=== PATIENT | male | born 1985 | race American Indian/Alaskan Native ===

== ENCOUNTER 2018-05-25 09:40 | Emergency (ER) | payer MEDICARE ==
[2018-05-25 10:06] VITALS: BP 127/67
[2018-05-25] MEDS ORDERED: TESSALON PERLES PO ONE (10:52)
--- NOTE | 2018-05-25 10:53 | Emergency Department Report ---
ED General Adult HPI - General Chief complaint: Upper Respiratory Infection Stated complaint: COLD/COUGH/MUCUS Time Seen by Provider: 05/25/18 10:26 Source: patient Mode of arrival: Ambulatory Limitations: No Limitations - History of Present Illness Initial comments: Patient presents to emergency Department with a chief complaint of a cough and congestion 4 days. Patient states the cough is productive in nature and endorses multiple sick contacts. Patient denies fever. Patient also denies chest pain, headache, abdominal pain. Patient states that he thinks he has bronchitis -: Gradual Severity scale (0 -10): 0 Quality: aching Consistency: constant Improves with: none Worsens with: none Associated Symptoms: denies other symptoms Treatments Prior to Arrival: none - Related Data Home Medications Medication Instructions Recorded Confirmed Last Taken Disulfiram [Antabuse] 06/25/14 06/25/14 Unknown Sertraline [Zoloft] 100 mg PO QDAY 06/25/14 06/25/14 Unknown traZODone [Desyrel] 50 mg PO QHS 06/25/14 06/25/14 Unknown Previous Rx's Medication Instructions Recorded Last Taken Type Amoxicillin [Trimox CAP] 500 mg PO Q8H #30 capsule 11/17/14 Unknown Rx Ibuprofen [Motrin 800 MG tab] 800 mg PO Q8HR PRN #30 tablet 11/17/14 Unknown Rx ALBUTEROL Inhaler (OR & NICU) 2 puff IH Q4HR PRN #1 inhalation 05/25/18 Unknown Rx [ProAir HFA Inhaler] Azithromycin [Zithromax Z-JAH] 250 mg PO DAILY #6 tablet 05/25/18 Unknown Rx Benzonatate [Tessalon Perles] 100 mg PO Q8HR PRN #20 capsule 05/25/18 Unknown Rx predniSONE [Deltasone] 20 mg PO DAILY #15 tablet 05/25/18 Unknown Rx Allergies Allergy/AdvReac Type Severity Reaction Status Date / Time No Known Allergies Allergy Verified 11/17/14 09:30 ED Review of Systems ROS: Stated complaint: COLD/COUGH/MUCUS Other details as noted in HPI Comment: All other systems reviewed and negative Constitutional: denies: chills, fever Eyes: denies: eye pain, eye discharge, vision change ENT: denies: ear pain, throat pain Respiratory: cough. denies: shortness of breath, wheezing Cardiovascular: denies: chest pain, palpitations Endocrine: no symptoms reported Gastrointestinal: denies: abdominal pain, nausea, diarrhea Genitourinary: denies: urgency, dysuria Musculoskeletal: denies: back pain, joint swelling, arthralgia Skin: denies: rash, lesions Neurological: denies: headache, weakness, paresthesias Psychiatric: denies: anxiety, depression Hematological/Lymphatic: denies: easy bleeding, easy bruising ED Past Medical Hx - Past Medical History Previous Medical History?: Yes Hx Diabetes: Yes Hx Psychiatric Treatment: Yes (Daniella peña Apr 2013/ DEPRESSION/ MOOD SWINGS) Additional medical history: Cocaine addiction - Surgical History Past Surgical History?: Yes Additional Surgical History: Right arm surgery - Social History Smoking Status: Current Every Day Smoker Substance Use Type: Alcohol - Medications Home Medications: Home Medications Medication Instructions Recorded Confirmed Last Taken Type Disulfiram [Antabuse] 06/25/14 06/25/14 Unknown History Sertraline [Zoloft] 100 mg PO QDAY 06/25/14 06/25/14 Unknown History traZODone [Desyrel] 50 mg PO QHS 06/25/14 06/25/14 Unknown History Amoxicillin [Trimox CAP] 500 mg PO Q8H #30 capsule 11/17/14 Unknown Rx Ibuprofen [Motrin 800 MG tab] 800 mg PO Q8HR PRN #30 tablet 11/17/14 Unknown Rx ALBUTEROL Inhaler (OR & NICU) 2 puff IH Q4HR PRN #1 inhalation 05/25/18 Unknown Rx [ProAir HFA Inhaler] Azithromycin [Zithromax Z-JAH] 250 mg PO DAILY #6 tablet 05/25/18 Unknown Rx Benzonatate [Tessalon Perles] 100 mg PO Q8HR PRN #20 capsule 05/25/18 Unknown Rx predniSONE [Deltasone] 20 mg PO DAILY #15 tablet 05/25/18 Unknown Rx ED Physical Exam - General Limitations: No Limitations General appearance: alert, in no apparent distress - Head Head exam: Present: atraumatic, normocephalic - Eye Eye exam: Present: normal appearance, PERRL, EOMI - ENT ENT exam: Present: mucous membranes moist - Neck Neck exam: Present: normal inspection - Respiratory Respiratory exam: Present: normal lung sounds bilaterally, wheezes, rales. Absent: respiratory distress - Cardiovascular Cardiovascular Exam: Present: regular rate, normal rhythm. Absent: systolic murmur, diastolic murmur, rubs, gallop - GI/Abdominal GI/Abdominal exam: Present: soft, normal bowel sounds. Absent: distended, tenderness - Rectal Rectal exam: Present: deferred - Extremities Exam Extremities exam: Present: normal inspection - Back Exam Back exam: Present: normal inspection - Neurological Exam Neurological exam: Present: alert, oriented X3, CN II-XII intact. Absent: motor sensory deficit - Psychiatric Psychiatric exam: Present: normal affect, normal mood - Skin Skin exam: Present: warm, dry, intact, normal color. Absent: rash ED Course Vital Signs 05/25/18 10:04 Temperature 98.2 F Pulse Rate 63 Respiratory 20 Rate Blood Pressure 127/67 O2 Sat by Pulse 99 Oximetry ED Medical Decision Making - Radiology Data Radiology results: report reviewed - Medical Decision Making Discussed results with patient Critical care attestation.: If time is entered above; I have spent that time in minutes in the direct care of this critically ill patient, excluding procedure time. ED Disposition Clinical Impression: Acute bronchitis Disposition: TO HOME OR SELFCARE Is pt being admited?: No Does the pt Need Aspirin: No Condition: Stable Instructions: Acute Bronchitis (ED) Additional Instructions: return if worse Prescriptions: ALBUTEROL Inhaler (OR & NICU) [ProAir HFA Inhaler] 2 puff IH Q4HR PRN #1 inhalation PRN Reason: Shortness Of Breath Azithromycin [Zithromax Z-JAH] 250 mg PO DAILY #6 tablet Benzonatate [Tessalon Perles] 100 mg PO Q8HR PRN #20 capsule PRN Reason: Cough predniSONE [Deltasone] 20 mg PO DAILY #15 tablet Referrals: JULIANNA HOSKINS MD [Primary Care Provider] - 3-5 Days [facility] [Provider Group] - 3-5 Days [facility] [Provider Group] - 3-5 Days Time of Disposition: 12:17
--- NOTE | 2018-05-25 12:35 | XRay Report ---
ROUTINE CHEST, TWO VIEWS: HISTORY: Cough. The trachea, heart, mediastinal contour, lung chapman and bony thorax are unremarkable. IMPRESSION: Unremarkable chest x-ray.
== END 2018-05-25 12:29 | disposition home or self-care (01) ==
LOC: ED 09:40
DX: J20.9 Acute bronchitis, unspecified (principal); E11.9 Type 2 diabetes mellitus without complications; F17.200 Nicotine dependence, unspecified, uncomplicated
CPT/HCPCS: 71046

== ENCOUNTER 2018-06-02 09:25 | Emergency (ER) | payer MEDICARE ==
--- NOTE | 2018-06-02 10:13 | Emergency Department Report ---
Minor Respiratory - HPI Chief Complaint: Upper Respiratory Infection Stated Complaint: COUGH/R ARM PAIN Time Seen by Provider: 06/02/18 09:50 Minor Respiratory: Yes Rhinorrhea, Yes Able to Tolerate Fluids, Yes Cough, No Sore Throat, No Ear Pain, No Sick Contacts, No Hemoptysis, No Chest Pain, No Shortness of Breath, No Fever Other History: Pt is a 32 yo male who presents to the ED with c/o a cough that began about two weeks ago. he states he has mucus sputum production. He has associated congestion. The patient denies any wheezing, sore throat, ear ache, SOB, fever, CP, or any other sx. The patient was evaluated in the ED on 05/25/18 and had a CXR which was normal. He was diagnosed with bronchitis and given medications. The patient states he did not fill any of the medications due to cost. I advised pt to receive the zpak and prednisone I gave him two pharmacies to choose from that would only cost him $18 for the medications. He verbalized understanding and agreed. ED Review of Systems ROS: Stated complaint: COUGH/R ARM PAIN Other details as noted in HPI Comment: All other systems reviewed and negative ED Past Medical Hx - Past Medical History Hx Diabetes: Yes Hx Psychiatric Treatment: Yes (Daniella peña Apr 2013/ DEPRESSION/ MOOD SWINGS) Additional medical history: Cocaine addiction - Surgical History Additional Surgical History: Right arm surgery - Social History Smoking Status: Current Every Day Smoker Substance Use Type: None - Medications Home Medications: Home Medications Medication Instructions Recorded Confirmed Last Taken Type Disulfiram [Antabuse] 06/25/14 06/25/14 Unknown History Sertraline [Zoloft] 100 mg PO QDAY 06/25/14 06/25/14 Unknown History traZODone [Desyrel] 50 mg PO QHS 06/25/14 06/25/14 Unknown History Ibuprofen [Motrin 800 MG tab] 800 mg PO Q8HR PRN #30 tablet 11/17/14 Unknown Rx Azithromycin [Zithromax Z-JAH] 250 mg PO DAILY #6 tablet 06/02/18 Unknown Rx predniSONE [Deltasone] 20 mg PO DAILY #15 tablet 06/02/18 Unknown Rx Minor Respiratory Exam - Exam General: Vital signs noted. No distress. Alert and acting appropriately. HEENT: Yes Moist Mucous Membranes, No Pharyngeal Erythema, No Pharyngeal Exudates, No Rhinorrhea, No Conjuctival Injection, No Frontal Tenderness, No Maxillary Tenderness Neck: Yes Supple, No Adenopathy Lungs: Yes Good Air Exchange, No Wheezes, No Ronchi, No Stridor, No Cough, No Labored Respirations, No Retractions, No Use of Accessory Muscles, No Other Abnormal Lung Sounds Heart: Yes Regular, No Murmur Neurologic: Alert and oriented, no deficits. Musculoskeletal: Unremarkable. ED Course Vital Signs 06/02/18 09:32 Temperature 98 F Pulse Rate 52 L Respiratory 20 Rate Blood Pressure 121/67 O2 Sat by Pulse 98 Oximetry ED Medical Decision Making - Medical Decision Making Pt presents with cough with mucus production x2 weeks. Associated congestion/rhinorrhea. Pt evaluated in the ED on 05/25/18 and had a CXR at that time which was within normal limits. Pt was diagnosed with bronchitis and prescribed medications. Pt did not fill any of the medications. Gave pt good Rx card and advised him of two pharmacies where he could get his medications for approximately 18 dollars or less. Pt agreed and is going to [place] picker the medications. Advised pt to follow up with primary care doctor in the next 2-3 days. Gave pt list of resources in the area. Discussed return to ED if any new or worsening symptoms. Critical care attestation.: If time is entered above; I have spent that time in minutes in the direct care of this critically ill patient, excluding procedure time. ED Disposition Clinical Impression: Acute bronchitis Qualifiers: Bronchitis organism: unspecified organism Qualified Code(s): J20.9 - Acute bronchitis, unspecified Disposition: - TO HOME OR SELFCARE Is pt being admited?: No Does the pt Need Aspirin: No Condition: Stable Instructions: Acute Bronchitis (ED) Additional Instructions: Follow up with primary care doctor in the next 2-3 days. Take all medications as prescribed. Return to the emergency room if any new or worsening symptoms. Prescriptions: predniSONE [Deltasone] 20 mg PO DAILY #15 tablet Azithromycin [Zithromax Z-JAH] 250 mg PO DAILY #6 tablet Referrals: JULIANNA HOSKINS MD [Primary Care Provider] - 2-3 Days Time of Disposition: 10:13 Print Language: CZECH
== END 2018-06-02 10:19 | disposition home or self-care (01) ==
LOC: ED 09:25
CPT/HCPCS: 99283

== ENCOUNTER 2019-01-14 00:51 | Emergency (ER) | payer MEDICARE ==
[2019-01-14 01:27] VITALS: BP 124/85
--- NOTE | 2019-01-14 01:33 | XRay Report ---
CHEST 2 VIEWS INDICATION / CLINICAL INFORMATION: productive cough. COMPARISON: None available. FINDINGS: SUPPORT DEVICES: None. HEART / MEDIASTINUM: No significant abnormality. LUNGS / PLEURA: No significant pulmonary or pleural abnormality. No pneumothorax. ADDITIONAL FINDINGS: No significant additional findings. IMPRESSION: 1. No acute findings. Signer Name: Chente Wong MD Signed: 01/14/2019 1:29 AM Workstation Name: [id number]
[2019-01-14] MEDS ORDERED: IPRATROPIUM/ALBUTEROL SULFATE 3 ML AMPUL.NEB IH ONE (01:40)
[2019-01-14] MEDS ORDERED: DEXAMETHASONE 4 MG TAB PO ONE (01:40)
--- NOTE | 2019-01-14 01:53 | Emergency Department Report ---
HPI - General Chief Complaint: Upper Respiratory Infection Time Seen by Provider: 01/14/19 01:17 - HPI HPI: 33-year-old -[place] male presents to the emergency department with a one-week history of some cold like symptoms, but the patient wonders if "I could have the flu." He is been having a mixed dry and productive cough, runny nose and says that he has some night sweats. He has a past medical history of asthma, GERD, hypertension, depression. He has not taken anything for her symptoms prior to presentation. No recent travel or sick contacts at home. He does not have a primary care physician. ED Past Medical Hx - Past Medical History Previous Medical History?: Yes Hx Hypertension: Yes Hx Diabetes: Yes Hx GERD: Yes Hx Psychiatric Treatment: Yes (DEPRESSION/ MOOD SWINGS.) Hx Asthma: Yes Additional medical history: Cocaine addiction, High lipids. - Surgical History Past Surgical History?: Yes Additional Surgical History: Right forearm surgery with hardware. - Social History Smoking Status: Current Every Day Smoker Substance Use Type: None - Medications Home Medications: Home Medications Medication Instructions Recorded Confirmed Last Taken Type Disulfiram [Antabuse] 06/25/14 06/25/14 Unknown History Sertraline [Zoloft] 100 mg PO QDAY 06/25/14 06/25/14 Unknown History traZODone [Desyrel] 50 mg PO QHS 06/25/14 06/25/14 Unknown History Ibuprofen [Motrin 800 MG tab] 800 mg PO Q8HR PRN #30 tablet 11/17/14 Unknown Rx Azithromycin [Zithromax Z-JAH] 250 mg PO DAILY #6 tablet 06/02/18 Unknown Rx predniSONE [Deltasone] 20 mg PO DAILY #15 tablet 06/02/18 Unknown Rx Ibuprofen [Motrin 800 MG tab] 800 mg PO Q8HR PRN #30 tablet 12/13/18 Unknown Rx ALBUTEROL Inhaler (OR & NICU) 2 puff IH QID PRN #1 inhalation 01/14/19 Unknown Rx [ProAir HFA Inhaler] Benzonatate [Tessalon Perles] 100 mg PO Q8HR #20 capsule 01/14/19 Unknown Rx ED Review of Systems ROS: Stated complaint: CHEST COUGH/COLD,RUNNY NOSE X 1WEEK Other details as noted in HPI Constitutional: diaphoresis. denies: fever Eyes: denies: eye pain, vision change ENT: denies: ear pain, throat pain Respiratory: cough, wheezing Cardiovascular: denies: chest pain, edema Gastrointestinal: denies: abdominal pain, vomiting Musculoskeletal: denies: back pain, arthralgia Neurological: denies: headache, weakness Physical Exam - Physical Exam Vital Signs: Vital Signs 01/14/19 00:54 Temperature 98.2 F Pulse Rate 79 Respiratory 18 Rate Blood Pressure 124/85 O2 Sat by Pulse 95 Oximetry Physical Exam: GENERAL: The patient is well-developed well-nourished. HENT: Normocephalic. Atraumatic. Patient has moist mucous membranes. EYES: Extraocular motions are intact. NECK: Supple. Trachea is midline. CHEST/LUNGS: Mild expiratory wheezing. No tachypnea or accessory muscle use. No cough heard during examination. There is no respiratory distress noted. HEART/CARDIOVASCULAR: Regular. There is no tachycardia. There is no murmur. ABDOMEN: There is no abdominal distention. SKIN: Skin is warm and dry. NEURO: The patient is awake, alert, and oriented. The patient is cooperative. The patient has no focal neurologic deficits. Normal speech. MUSCULOSKELETAL: There is no tenderness or deformity. There is no evidence of acute injury. ED Course Vital Signs 01/14/19 00:54 Temperature 98.2 F Pulse Rate 79 Respiratory 18 Rate Blood Pressure 124/85 O2 Sat by Pulse 95 Oximetry ED Medical Decision Making - Radiology Data Radiology results: image reviewed interpreted by me: Chest x-ray does not show any acute process. There are no pleural effusions, obvious pneumonia and there is no pneumothorax. - Medical Decision Making This patient presents with a one-week history of a mixed dry and productive cough, runny nose and some alleged night sweats. No recent travel or sick contacts. Vital signs stable throughout his ED course including being afebrile. On examination he has some mild expiratory wheezing but does not appear in any respiratory distress and no cough heard during examination. Chest x-ray does not show any acute process including any pneumonia, pleural effusions or focal consolidation. He was given a dose of Decadron and a breathing treatment and upon reevaluation he says he is feeling improved. The patient was concerned that he may have influenza, however his symptoms have been going on for one week and therefore he would not be a candidate for Tamiflu and it is not necessary to confirm influenza as it is now just another viral syndrome. The patient does appear to have a viral upper respiratory infection and some bronchitis. He'll be treated with some Tessalon Perles and an albuterol inhaler. We discussed picking up some Mucinex. He was given referrals for primary care. He will return to the ER with any worsening of his symptoms or any acute distress. - Differential Diagnosis influenza, viral URI, pneumonia, bronchitis Critical Care Time: No Critical care attestation.: If time is entered above; I have spent that time in minutes in the direct care of this critically ill patient, excluding procedure time. ED Disposition Clinical Impression: Viral upper respiratory infection, Bronchitis Disposition: TO HOME OR SELFCARE Is pt being admited?: No Condition: Stable Instructions: Upper Respiratory Infection (ED), Acute Bronchitis (ED) Additional Instructions: Please follow-up with a primary care physician in the next few days. Return to the emergency Department with any worsening of your symptoms or any acute distress. Prescriptions: ALBUTEROL Inhaler (OR & NICU) [ProAir HFA Inhaler] 2 puff IH QID PRN #1 inh alation PRN Reason: Shortness Of Breath Benzonatate [Tessalon Perles] 100 mg PO Q8HR #20 capsule Referrals: ELIDA ADAM MD [Staff Physician] - 2-3 Days [facility] [Outside] - 2-3 Days Time of Disposition: 02:18
== END 2019-01-14 02:31 | disposition home or self-care (01) ==
LOC: ED 00:51
DX: J40 Bronchitis, not specified as acute or chronic (principal); J06.9 Acute upper respiratory infection, unspecified; I10 Essential (primary) hypertension; E11.9 Type 2 diabetes mellitus without complications; K21.9 Gastro-esophageal reflux disease without esophagitis; F32.9 Major depressive disorder, single episode, unspecified; F17.200 Nicotine dependence, unspecified, uncomplicated; Z79.899 Other long term (current) drug therapy
CPT/HCPCS: 71046; 94640; 99283; J8540

== ENCOUNTER 2019-01-24 01:48 | Emergency (ER) | payer MEDICARE ==
--- NOTE | 2019-01-24 06:54 | Event Note ---
ED Screening Note Date of service: 01/24/19 Time: 06:54 ED Screening Note: Ration here reported that he was here on 1024 with similar symptoms and he got treated with steroid shot given antibiotic and given antibiotic prescription to go home with and he completed his antibiotic but he still feeling the same way. He said he has fever and he has chills shortness of breath. Patient does smoke. Patient oxygenation and in triage is 93% on room air Lungs: She was wheezing throughout lung chapman and congested cough. This initial assessment/diagnostic orders/clinical plan/treatment(s) is/are subject to change based on patients health status, clinical progression and re- assessment by fellow clinical providers in the ED. Further treatment and workup at subsequent clinical providers discretion. Patient/guardian urged not to elope from the ED as their condition may be serious if not clinically assessed and managed. Initial orders include: Xopenex and Atrovent and respiratory call. Patient received Motrin by mouth. Chest x-ray ordered
[2019-01-24] MEDS ORDERED: IPRATROPIUM 0.02% NEBU 2.5 ML IH ONE (06:57)
[2019-01-24] MEDS ORDERED: IBUPROFEN 800 MG TAB PO ONE (06:57)
[2019-01-24] MEDS ORDERED: LEVALBUTEROL 0.63 MG/3 ML NEBU IH ONE (06:57)
[2019-01-24] MEDS ORDERED: dexAMETHasone 4 MG/ML VIAL IM STA (06:58)
--- NOTE | 2019-01-24 07:25 | XRay Report ---
CHEST 2 VIEWS INDICATION / CLINICAL INFORMATION: cough, fever for almost 2 weeks. COMPARISON: 01/14/19 FINDINGS: SUPPORT DEVICES: None. HEART / MEDIASTINUM: No significant abnormality. LUNGS / PLEURA: Interval development of a lateral subtle patchy versus nodular pulmonary opacities. N o pneumothorax. ADDITIONAL FINDINGS: No significant additional findings. IMPRESSION: 1. Patchy/nodular bilateral pulmonary opacities which are likely inflammatory/infectious in nature. Signer Name: Amado Ford MD Signed: 01/24/2019 7:20 AM Workstation Name: [id number]
[2019-01-24 08:44] VITALS: BP 118/56
[2019-01-24] MEDS ORDERED: LIDOCAINE-MPF (1%) 10 MG/1 ML VIAL 5 ML INFILTRATI ONE (09:05)
--- NOTE | 2019-01-24 09:08 | Emergency Department Report ---
- General Chief Complaint: Upper Respiratory Infection Stated Complaint: COUGH/CHEST/ABD PAIN FROM COUGH Time Seen by Provider: 01/24/19 06:53 Source: patient Mode of arrival: Ambulatory Limitations: No Limitations - History of Present Illness Initial Comments: This is a 33-year-old male presents to ED with cough and and chest pain times 10 days. Patient states he was evaluated last week and was treated for viral infection. Patient states the symptoms is worsening and is not going away. Patient is complaining of intermittent, productive cough. Patient also complains of wheezing. MD Complaint: cough Severity: moderate Associated Symptoms: denies: fever, chills, rhinorrhea, nausea, vomiting, diar reginaldo, confusion - Related Data Home Medications Medication Instructions Recorded Confirmed Last Taken Disulfiram [Antabuse] 06/25/14 06/25/14 Unknown Sertraline [Zoloft] 100 mg PO QDAY 06/25/14 06/25/14 Unknown traZODone [Desyrel] 50 mg PO QHS 06/25/14 06/25/14 Unknown Previous Rx's Medication Instructions Recorded Last Taken Type predniSONE [Deltasone] 20 mg PO DAILY #15 tablet 06/02/18 Unknown Rx Ibuprofen [Motrin 800 MG tab] 800 mg PO Q8HR PRN #30 tablet 12/13/18 Unknown Rx ALBUTEROL Inhaler (OR & NICU) 2 puff IH QID PRN #1 inhalation 01/14/19 Unknown Rx [ProAir HFA Inhaler] Benzonatate [Tessalon Perles] 100 mg PO Q8HR #20 capsule 01/14/19 Unknown Rx Azithromycin [Zithromax TAB] 500 mg PO QDAY #7 tablet 01/24/19 Unknown Rx Ibuprofen [Motrin 800 MG tab] 800 mg PO Q8HR PRN #30 tablet 01/24/19 Unknown Rx guaiFENesin [Robitussin] 100 mg PO TID #80 ml 01/24/19 Unknown Rx Allergies Allergy/AdvReac Type Severity Reaction Status Date / Time No Known Allergies Allergy Verified 06/02/18 09:28 ED Review of Systems ROS: Stated complaint: COUGH/CHEST/ABD PAIN FROM COUGH Other details as noted in HPI Comment: All other systems reviewed and negative ED Past Medical Hx - Past Medical History Previous Medical History?: Yes Hx Hypertension: Yes Hx Diabetes: Yes Hx GERD: Yes Hx Psychiatric Treatment: Yes (DEPRESSION/ MOOD SWINGS.) Hx Asthma: Yes Additional medical history: Cocaine addiction, High lipids. - Surgical History Past Surgical History?: Yes Additional Surgical History: Right forearm surgery with hardware. - Social History Smoking Status: Current Every Day Smoker Substance Use Type: None - Medications Home Medications: Home Medications Medication Instructions Recorded Confirmed Last Taken Type Disulfiram [Antabuse] 06/25/14 06/25/14 Unknown History Sertraline [Zoloft] 100 mg PO QDAY 06/25/14 06/25/14 Unknown History traZODone [Desyrel] 50 mg PO QHS 06/25/14 06/25/14 Unknown History predniSONE [Deltasone] 20 mg PO DAILY #15 tablet 06/02/18 Unknown Rx Ibuprofen [Motrin 800 MG tab] 800 mg PO Q8HR PRN #30 tablet 12/13/18 Unknown Rx ALBUTEROL Inhaler (OR & NICU) 2 puff IH QID PRN #1 inhalation 01/14/19 Unknown Rx [ProAir HFA Inhaler] Benzonatate [Tessalon Perles] 100 mg PO Q8HR #20 capsule 01/14/19 Unknown Rx Azithromycin [Zithromax TAB] 500 mg PO QDAY #7 tablet 01/24/19 Unknown Rx Ibuprofen [Motrin 800 MG tab] 800 mg PO Q8HR PRN #30 tablet 01/24/19 Unknown Rx guaiFENesin [Robitussin] 100 mg PO TID #80 ml 01/24/19 Unknown Rx ED Physical Exam - General Limitations: No Limitations General appearance: alert, in no apparent distress - Head Head exam: Present: atraumatic, normocephalic - Eye Eye exam: Present: normal appearance - ENT ENT exam: Present: mucous membranes moist - Neck Neck exam: Present: normal inspection - Respiratory Respiratory exam: Present: normal lung sounds bilaterally, wheezes. Absent: respiratory distress - Cardiovascular Cardiovascular Exam: Present: regular rate, normal rhythm. Absent: systolic murmur, diastolic murmur, rubs, gallop - GI/Abdominal GI/Abdominal exam: Present: soft, normal bowel sounds - Rectal Rectal exam: Present: deferred - Extremities Exam Extremities exam: Present: normal inspection - Back Exam Back exam: Present: normal inspection - Neurological Exam Neurological exam: Present: alert, oriented X3 - Psychiatric Psychiatric exam: Present: normal affect, normal mood - Skin Skin exam: Present: warm, dry, intact, normal color. Absent: rash ED Course Vital Signs 01/24/19 01/24/19 01/24/19 01:27 EST 08:00 08:42 Temperature 98.4 F 98.5 F Pulse Rate 77 74 Pulse Rate [ 62 Posterior Bilateral Throughout] Respiratory 18 13 Rate Respiratory 20 Rate [Posterior Bilateral Throughout] Blood Pressure 136/75 118/56 O2 Sat by Pulse 93 100 Oximetry ED Medical Decision Making - Radiology Data Radiology results: report reviewed, image reviewed CHEST 2 VIEWS INDICATION / CLINICAL INFORMATION: cough, fever for almost 2 weeks. COMPARISON: 01/14/19 FINDINGS: SUPPORT DEVICES: None. HEART / MEDIASTINUM: No significant abnormality. LUNGS / PLEURA: Interval development of a lateral subtle patchy versus nodular pulmonary opacities. No pneumothorax. ADDITIONAL FINDINGS: No significant additional findings. IMPRESSION: 1. Patchy/nodular bilateral pulmonary opacities which are likely inflammatory/infectious in nature. Signer Name: Amado Ford MD Signed: 01/24/2019 7:20 AM Workstation Name: [id number] Transcribed By: DT Dictated By: Umang Ford MD Electronically Authenticated By: Umang Ford MD Signed Date/Time: 01/24/19 0720 - Medical Decision Making 33-year-old male presents with upper respiratory infection most likely pneumonia. Patient received a breathing treatment in the ED, Rocephin antibiotics for prophylaxis. Influenza test negative Chest x-ray shows, see report above Oxygen saturation increase to 100% on room air Discussed findings with the patient. Discussed the patient to make sure he takes all antibiotics as prescribed. Discussed patient follow-up with primary care physician 3-4 days. Patient the signs instructions and will follow-up. Critical care attestation.: If time is entered above; I have spent that time in minutes in the direct care of this critically ill patient, excluding procedure time. ED Disposition Clinical Impression: Bronchial pneumonia, Upper respiratory infection Disposition: - TO HOME OR SELFCARE Is pt being admited?: No Does the pt Need Aspirin: No Condition: Stable Instructions: Chronic Bronchitis (ED), Community-acquired Pneumonia (ED) Additional Instructions: Make sure to follow up with the primary care physician as discussed. Take all your medications as you've been prescribed. If you have any worsening symptoms or develop new symptoms please return to ED immediately. Prescriptions: Ibuprofen [Motrin 800 MG tab] 800 mg PO Q8HR PRN #30 tablet PRN Reason: Pain guaiFENesin [Robitussin] 100 mg PO TID #80 ml Azithromycin [Zithromax TAB] 500 mg PO QDAY #7 tablet Referrals: PRIMARY CARE, [Primary Care Provider] - 3-5 Days [facility] [Outside] - 3-5 Days [facility] [Outside] - 3-5 Days Forms: Work/School Release Form(ED) Time of Disposition: 09:34
== END 2019-01-24 09:47 | disposition home or self-care (01) ==
LOC: ED 01:48
DX: J18.0 Bronchopneumonia, unspecified organism (principal); J06.9 Acute upper respiratory infection, unspecified; J45.909 Unspecified asthma, uncomplicated; I10 Essential (primary) hypertension; E11.9 Type 2 diabetes mellitus without complications; K21.9 Gastro-esophageal reflux disease without esophagitis; F32.9 Major depressive disorder, single episode, unspecified; F17.200 Nicotine dependence, unspecified, uncomplicated; F14.10 Cocaine abuse, uncomplicated; Z98.890 Other specified postprocedural states; Z79.899 Other long term (current) drug therapy; Z79.1 Long term (current) use of non-steroidal anti-inflammatories (NSAID)
CPT/HCPCS: 71046; 87400; 94640; 96372; 99284; J0696; J1100; 94644

== ENCOUNTER 2019-08-12 14:20 | Outpatient (CLI) | payer MEDICARE | END 2019-08-12 14:21 | disposition home or self-care (01) | LOC: LAB 14:20 | PROVIDERS: ATTEND Psychiatry & Neurology Psychiatry | DX: F31.9 Bipolar disorder, unspecified (principal); Z11.59 Encounter for screening for other viral diseases | CPT/HCPCS: 36415; 84443; 86592 ==

== ENCOUNTER 2019-08-23 09:55 | Outpatient (CLI) | payer MEDICARE | END 2019-08-23 09:56 | disposition home or self-care (01) | LOC: LAB 09:55 | DX: Z96.7 Presence of other bone and tendon implants (principal) | CPT/HCPCS: 36415; 80164 ==

== ENCOUNTER 2021-04-30 00:17 | Emergency (ER) | payer MEDICARE ==
[2021-04-30 01:16] LABS: Basophils # (Auto) 0.1 K/mm3 (0.0-0.1); Basophils % (Auto) 1.1 % (0.0-1.8); Eosinophils # (Auto) 0.2 K/mm3 (0.0-0.4); Eosinophils % (Auto) 2.1 % (0.0-4.3); Hematocrit 43.3 % (35.5-45.6); Hemoglobin 14.6 gm/dl (11.8-15.2); Lymphocytes # (Auto) 3.8 K/mm3 (1.2-5.4); Lymphocytes % (Auto) 45.8 % (13.4-35.0); Mean Corpuscular HGB Conc 34 % (32-34); Mean Corpuscular Volume 94 fl (84-94); Monocytes # (Auto) 0.5 K/mm3 (0.0-0.8); Monocytes % (Auto) 5.5 % (0.0-7.3); Platelet Count 279 K/mm3 (140-440); Red Blood Count 4.61 M/mm3 (3.65-5.03); Red Cell Distribution Width 14.5 % (13.2-15.2)
[2021-04-30] MEDS ORDERED: ZIPRASIDONE MESYLATE 20 MG VIAL IM ONE ×3 (01:20→20:53)
--- NOTE | 2021-04-30 01:24 | Emergency Department Report ---
ED Psych HPI - General Chief Complaint: Psych Stated Complaint: SUCIDAL THOUGHTS Time Seen by Provider: 04/30/21 01:15 Source: patient Mode of arrival: Ambulatory Limitations: No Limitations - History of Present Illness Initial Comments: Chief complaint: "I am here on a 1013." HPI: This is a 35-year-old male with history of bipolar disorder, cocaine use, hypertension, GERD, diabetes mellitus who presents with suicidal ideation. He informed the treatment nurse that he wanted to overdose on drugs. He denies any physical concerns. MD Complaint: suicidal ideation, feels depressed -: week(s) (2 weeks) Associated Psychiatric Symptoms: suicidal ideation, racing thoughts History of same: Yes Quality: constant Worsens With: drug use (History of cocaine dependence) Context: recent drug abuse, not taking psychiatric Treatments Prior to Arrival: none If Self Harm: has plan - Related Data Home Medications Medication Instructions Recorded Confirmed Last Taken Disulfiram [Antabuse] 06/25/14 06/25/14 Unknown Sertraline [Zoloft] 100 mg PO QDAY 06/25/14 06/25/14 Unknown traZODone [Desyrel] 50 mg PO QHS 06/25/14 06/25/14 Unknown Previous Rx's Medication Instructions Recorded Last Taken Type predniSONE [Deltasone] 20 mg PO DAILY #15 tablet 06/02/18 Unknown Rx Ibuprofen [Motrin 800 MG tab] 800 mg PO Q8HR PRN #30 tablet 12/13/18 Unknown Rx Albuterol Mdi (or & Nicu Only) 2 puff IH QID PRN #1 inhalation 01/14/19 Unknown Rx [ProAir HFA Inhaler] Benzonatate [Tessalon Perles] 100 mg PO Q8HR #20 capsule 01/14/19 Unknown Rx Azithromycin [Zithromax TAB] 500 mg PO QDAY #7 tablet 01/24/19 Unknown Rx Ibuprofen [Motrin 800 MG tab] 800 mg PO Q8HR PRN #30 tablet 01/24/19 Unknown Rx guaiFENesin [Robitussin] 100 mg PO TID #80 ml 01/24/19 Unknown Rx Allergies Allergy/AdvReac Type Severity Reaction Status Date / Time No Known Allergies Allergy Verified 06/02/18 09:28 ED Review of Systems ROS: Stated complaint: SUCIDAL THOUGHTS Other details as noted in HPI Comment: All other systems reviewed and negative Constitutional: denies: chills, fever, malaise Respiratory: denies: cough, shortness of breath Cardiovascular: denies: chest pain Gastrointestinal: denies: abdominal pain, nausea, vomiting Psychiatric: depression, suicidal thoughts ED Past Medical Hx - Past Medical History Previous Medical History?: Yes Hx Hypertension: Yes Hx Diabetes: Yes Hx GERD: Yes Hx Psychiatric Treatment: Yes (DEPRESSION/ MOOD SWINGS, BIPOLAR) Hx Asthma: Yes Additional medical history: Cocaine addiction, High lipids. - Surgical History Past Surgical History?: Yes Additional Surgical History: Right forearm surgery with hardware. - Social History Smoking Status: Current Every Day Smoker Substance Use Type: Alcohol, Cocaine, Marijuana, Other - Medications Home Medications: Home Medications Medication Instructions Recorded Confirmed Last Taken Type Disulfiram [Antabuse] 06/25/14 06/25/14 Unknown History Sertraline [Zoloft] 100 mg PO QDAY 06/25/14 06/25/14 Unknown History traZODone [Desyrel] 50 mg PO QHS 06/25/14 06/25/14 Unknown History predniSONE [Deltasone] 20 mg PO DAILY #15 tablet 06/02/18 Unknown Rx Ibuprofen [Motrin 800 MG tab] 800 mg PO Q8HR PRN #30 tablet 12/13/18 Unknown Rx Albuterol Mdi (or & Nicu Only) 2 puff IH QID PRN #1 inhalation 01/14/19 Unknown Rx [ProAir HFA Inhaler] Benzonatate [Tessalon Perles] 100 mg PO Q8HR #20 capsule 01/14/19 Unknown Rx Azithromycin [Zithromax TAB] 500 mg PO QDAY #7 tablet 01/24/19 Unknown Rx Ibuprofen [Motrin 800 MG tab] 800 mg PO Q8HR PRN #30 tablet 01/24/19 Unknown Rx guaiFENesin [Robitussin] 100 mg PO TID #80 ml 01/24/19 Unknown Rx ED Physical Exam - General Limitations: No Limitations General appearance: alert, in no apparent distress, other (Verbally aggressive appears paranoid) - Head Head exam: Present: atraumatic, normocephalic - Eye Eye exam: Present: normal appearance - ENT ENT exam: Present: mucous membranes moist - Neck Neck exam: Present: normal inspection, full ROM - Respiratory Respiratory exam: Present: normal lung sounds bilaterally. Absent: respiratory distress, wheezes, rales, rhonchi, stridor - Cardiovascular Cardiovascular Exam: Present: regular rate, normal rhythm, normal heart sounds. Absent: systolic murmur, diastolic murmur, rubs, gallop - GI/Abdominal GI/Abdominal exam: Present: soft, normal bowel sounds. Absent: distended, te nderness, guarding, rebound - Rectal Rectal exam: Present: deferred - Extremities Exam Extremities exam: Present: normal inspection - Back Exam Back exam: Present: normal inspection - Neurological Exam Neurological exam: Present: alert, oriented X3 - Psychiatric Psychiatric exam: Present: agitated, other (Labile affect) - Skin Skin exam: Present: warm, dry, intact, normal color. Absent: rash ED Course Vital Signs 04/30/21 00:45 Temperature 98.3 F Pulse Rate 87 Respiratory 18 Rate Blood Pressure 127/77 O2 Sat by Pulse 96 Oximetry - Reevaluation(s) Reevaluation #1: 04/30/21 01:38 With increasing aggressive behavior and agitation, patient placed in seclusion. He refused Geodon injection. Reevaluation #2: 04/30/21 02:52 Patient is banking on door seclusion room. Using foul language. Calling this provider inappropriate names. Reevaluation #3: 04/30/21 03:48 Police officers contacted to assist with administration of chemical restraint. Patient agreed to take p.o. lorazepam and trazodone. Reevaluation #4: 04/30/21 05:21 Patient is protecting airway. He has purposeful movement. ED Medical Decision Making - Lab Data Result diagrams: 04/30/21 01:04 04/30/21 01:04 - Medical Decision Making This is a 35-year-old male with history of bipolar disorder, cocaine dependence who presents with suicidal ideation, labile affect and mood. I suspect recent cocaine use versus carson. He is medically clear for psychiatric care. 1013 form completed. ED hold order in place. Awaiting treatment recommendations by psychiatric team. I have reviewed all labs CBC chemistry urine toxicology UDS positive for cocaine screen, blood alcohol level 0.18. Patient is medically clear for psychiatric care. Critical care attestation.: If time is entered above; I have spent that time in minutes in the direct care of this critically ill patient, excluding procedure time. ED Disposition Clinical Impression: Bipolar disorder, Cocaine dependence, Suicidal ideation, Acute alcohol intoxication Disposition: 30 STILL A PATIENT Is pt being admited?: No Does the pt Need Aspirin: No Condition: Stable Referrals: PRIMARY CARE, [Primary Care Provider] - 3-5 Days
[2021-04-30 01:48] LABS: BUN/Creatinine Ratio 7; Blood Urea Nitrogen 7 mg/dL (9-20); Calcium 8.8 mg/dL (8.4-10.2); Hemolysis Index 14
[2021-04-30 01:57] LABS: Bilirubin,Urine NEG (Negative); Blood,Urine NEG (Negative); Color,Urine Yellow (Yellow); Mucus,Urine FEW /HPF; Protein,Urine <15 mg/dL mg/dL (Negative); Urobilinogen,Urine < 2.0 mg/dL (<2.0)
[2021-04-30 02:06] LABS: Amphetamine Screen,Urine PRESUMPTIVE NEGATIVE; Benzodiazepines Screen,Urine PRESUMPTIVE NEGATIVE; Cannabinoid Screen,Urine PRESUMPTIVE NEGATIVE; Cocaine Screen,Urine PRESUMPTIVE POSITIVE; Methadone Screen,Urine PRESUMPTIVE NEGATIVE; Opiate Screen,Urine PRESUMPTIVE NEGATIVE
[2021-04-30] MEDS ORDERED: LORazepam 1 MG TAB PO ONE (03:35)
[2021-04-30] MEDS ORDERED: traZODone 50 MG TAB PO ONE (03:35)
--- NOTE | 2021-04-30 10:48 | Consultation ---
History of Present Illness - Reason for Consult Consult date: 04/30/21 Reason for consult: SI - History of Present Psychiatric Illness The patient is a 35 year old male who presents to the ED with suicidal ideation. The patient was recently given Ativan IM. Per nurse, " Patient has been agitated and verbally aggressive to staff and other patients. He was placed in room 13 and he began to hit and kick the door. He stood up in the chair and placed his mask over the camera. Patient was ordered Geodon 20 mg IM but refused the shot. MD and charge nurse were notified. Security and [employer] was called to assist d/t patients increasing aggressiveness. MD changed orders to Ativan 2 mg and Desyrel 100 mg PO. Charge nurse and [employer] were able to get his to take the medicine. Faby knott is currently resting with eyes closed." PAST PSYCHIATRIC HISTORY PAST MEDICAL HISTORY: Family Psychiatric History: Not available SOCIAL HISTORY REVIEW OF SYSTEMS MENTAL STATUS EXAMINATION Assessment and Plan (1) Major depressive disorder (2) Current Visit: Yes Status: Acute RECOMMENDATIONS 1013 Continue home meds Risks, benefits and alternatives of medications discussed with the patient, questions answered and consent obtained from patient. PSYCHOTHERAPY: Supportive psychotherapy provided MEDICAL: Per primary team DELIRIUM PRECAUTIONS: Please re-orient patient frequently, keep lights on during the day, and minimize benzodiazepines and opiates as these medications could worsen patient's confusion. SERVICE ASSOCIATE: Per medical team DISPOSITION: Recommend acute inpatient psychiatric hospitalization at this time. FOLLOW-UP: Will follow. Thank you for the consult. Please contact with any questions and/or concerns. Medications and Allergies Allergies Allergy/AdvReac Type Severity Reaction Status Date / Time No Known Allergies Allergy Verified 06/02/18 09:28 Home Medications Medication Instructions Recorded Confirmed Last Taken Type Disulfiram [Antabuse] 06/25/14 06/25/14 Unknown History Sertraline [Zoloft] 100 mg PO QDAY 06/25/14 06/25/14 Unknown History traZODone [Desyrel] 50 mg PO QHS 06/25/14 06/25/14 Unknown History predniSONE [Deltasone] 20 mg PO DAILY #15 tablet 06/02/18 Unknown Rx Ibuprofen [Motrin 800 MG tab] 800 mg PO Q8HR PRN #30 tablet 12/13/18 Unknown Rx Albuterol Mdi (or & Nicu Only) 2 puff IH QID PRN #1 inhalation 01/14/19 Unknown Rx [ProAir HFA Inhaler] Benzonatate [Tessalon Perles] 100 mg PO Q8HR #20 capsule 01/14/19 Unknown Rx Azithromycin [Zithromax TAB] 500 mg PO QDAY #7 tablet 01/24/19 Unknown Rx Ibuprofen [Motrin 800 MG tab] 800 mg PO Q8HR PRN #30 tablet 01/24/19 Unknown Rx guaiFENesin [Robitussin] 100 mg PO TID #80 ml 01/24/19 Unknown Rx Mental Status Exam - Vital signs Last Vital Signs Temp 98.3 F 04/30/21 00:45 Pulse 87 04/30/21 00:45 Resp 18 04/30/21 05:35 BP 127/77 04/30/21 00:45 Pulse Ox 97 04/30/21 05:35 Results Result Diagrams: 04/30/21 01:04 04/30/21 01:04 Abnormal lab results 04/30/21 04/30/21 04/30/21 Range/Units 01:04 01:04 01:04 Lymph % (Auto) (13.4-35.0) % Sodium 149 H (137-145) mmol/L Chloride 108.7 H (98-107) mmol/L BUN 7 L (9-20) mg/dL Glucose 151 H (75-100) mg/dL Salicylates < 0.3 L (2.8-20.0) mg/dL Acetaminophen 5.0 L (10.0-30.0) ug/mL Plasma/Serum Alcohol (0-0.07) % 04/30/21 04/30/21 Range/Units 01:04 01:04 Lymph % (Auto) 45.8 H (13.4-35.0) % Sodium (137-145) mmol/L Chloride (98-107) mmol/L BUN (9-20) mg/dL Glucose (75-100) mg/dL Salicylates (2.8-20.0) mg/dL Acetaminophen (10.0-30.0) ug/mL Plasma/Serum Alcohol 0.18 H (0-0.07) % All other labs normal.
--- NOTE | 2021-04-30 12:05 | Event Note ---
Date: 04/30/21 The patient was evaluated in the emergency department for symptoms described in the history of present illness. He/she was evaluated in the context of the global COVID-19 pandemic, which necessitated consideration that the patient might be at risk for infection with the virus that causes COVID-19. Institutional protocols and algorithms that pertain to the evaluation of patients at risk for COVID-19 are in a state of rapid change based on information released by regulatory bodies including the CDC and federal and state organizations. These policies and algorithms were followed during the patient's care in the emergency department. Please note that these policies, procedures and recommendations changed on a rapid basis. Laboratory studies, vital signs, nursing documentation, ER documentation, and psychiatric documentation are reviewed and appreciated. Nursing team reports no acute events this morning or concerns. The patient is sleeping at this time. Care team informs me that he was agitated prior to my arrival and personal evaluation, and that he required chemical restraint. He is breathing spontaneously at this time. The psychiatry team were unable to assess this patient secondary to his sedation. They will reassess him. He meets criteria for 1013/involuntary confinement at this time. The patient was deemed medically suitable for psychiatric disposition and placement during his initial ER evaluation. The patient continues to remain medically suitable for psychiatric placement and disposition. He is currently pending psychiatric placement.
[2021-05-01 09:52] VITALS: BP 128/76
--- NOTE | 2021-05-01 10:40 | Progress Note ---
Subjective - Reason for Consult Consult date: 05/01/21 Reason for consult: mental health evaluation - Chief Complaint Chief complaint: The patient was seen this morning. he reports doing well, states he was intoxicated yesterday, states he started drinking at age 14 and had has been to multiple inpatient detoxification and rehab. He states longest sobriety period as 2 years while he was in rehab. When asked why he drinks he states " I just like to drink." He states he needs to be at work. The patient denies any current suicidal/homicidal ideation and denies hallucination. REVIEW OF SYSTEMS Constitutional: Negative for weight loss ENT: Negative for stridor Respiratory: Negative for cough or hemoptysis All other systems reviewed and are negative MENTAL STATUS EXAMINATION General Appearance and Behavior: Age appropriate, good hygiene, wearing appropriate clothes. calm, cooperative Cooperation: Cooperative Psychomotor Behavior: Psychomotor normal Mood: "ok" Affect and affective range: congruent with stated mood Thought Process: Goal directed Thought Content: reality oriented Speech:Normal Suicidal Ideation: Denies Homicidal Ideation: Denies Hallucinations: Denies Delusions:None Impulse Control: Limited Insight and Judgment: Limited insight and fair judgment Memory: Limited Attention: distracted Orientation: a/o x 3 (1) Alcohol use disorder (2) Current Visit: Yes Status: Acute RECOMMENDATIONS [id number] Continue home meds Risks, benefits and alternatives of medications discussed with the patient, questions answered and consent obtained from patient. PSYCHOTHERAPY: Supportive psychotherapy provided MEDICAL: Per primary team DELIRIUM PRECAUTIONS: Please re-orient patient frequently, keep lights on during the day, and minimize benzodiazepines and opiates as these medications could worsen patient's confusion. WASH DRILLER HELPER: Per medical team DISPOSITION: Do not recommend acute inpatient psychiatric hospitalization at this time. FOLLOW-UP: Will sign off. Please contact with any questions and/or concerns. Medications and Allergies Mental Status Exam - Vital signs Last Vital Signs Temp 98.4 F 05/01/21 09:50 Pulse 76 05/01/21 09:50 Resp 18 05/01/21 09:50 BP 128/76 05/01/21 09:50 Pulse Ox 100 05/01/21 09:50
== END 2021-05-01 11:08 | disposition still patient (30) ==
LOC: ED 00:17
DX: F31.9 Bipolar disorder, unspecified (principal); R45.851 Suicidal ideations; F14.20 Cocaine dependence, uncomplicated; F10.129 Alcohol abuse with intoxication, unspecified; I10 Essential (primary) hypertension; E11.9 Type 2 diabetes mellitus without complications; F17.200 Nicotine dependence, unspecified, uncomplicated; J45.909 Unspecified asthma, uncomplicated; F12.90 Cannabis use, unspecified, uncomplicated; Z98.890 Other specified postprocedural states; Z79.899 Other long term (current) drug therapy; Y90.9 Presence of alcohol in blood, level not specified
CPT/HCPCS: 36415; 80048; 80307; 81001; 85025; 99284; J3486; 80320; G0480

== ENCOUNTER 2021-05-04 11:33 | Emergency (ER) | payer MEDICARE ==
[2021-05-04 11:57] VITALS: BP 144/82
--- NOTE | 2021-05-04 12:26 | Emergency Department Report ---
- General Chief Complaint: Upper Respiratory Infection Stated Complaint: FLU SX Time Seen by Provider: 05/04/21 12:15 Source: patient Mode of arrival: Ambulatory Limitations: No Limitations - History of Present Illness Initial Comments: 35-year-old male with a past medical history of diabetes presents to the ER today with complaints of URI symptoms. Patient states that his symptoms started yesterday. He reports productive cough, with some mild mild rhinorrhea nasal congestion, he states that this morning when he woke up he noticed that his eyes were red but there was no matting shut, crusting or drainage and no pain to his eye. He does not wear any glasses or contacts. He denies any sore throat. He reports no wheezing, chest pain or shortness of breath. He denies any UTI or GI symptoms. He states that his blood sugar this morning was in the 150s. He denies any fever or chills. He denies any known ill contacts or recent travel. He has not been vaccinated against COVID-19 and he has not had a Covid test since he started feeling bad yesterday. MD Complaint: cough, nasal congestion, other (rhinorrhea ; eye redness) -: days(s) (1) - Related Data Home Medications Medication Instructions Recorded Confirmed Last Taken Sertraline [Zoloft] 100 mg PO QDAY 06/25/14 06/25/14 Unknown traZODone [Desyrel] 50 mg PO QHS 06/25/14 06/25/14 Unknown Previous Rx's Medication Instructions Recorded Last Taken Type Benzonatate [Tessalon Perles] 100 mg PO Q8HR #30 cap 05/04/21 Unknown Rx Cetirizine HCl [Zyrtec 10mg tab] 10 mg PO DAILY #30 tab 05/04/21 Unknown Rx Gentamicin 0.3% Ophth Soln 1 drops OP Q4H 7 Days #1 bottle 05/04/21 Unknown Rx Allergies Allergy/AdvReac Type Severity Reaction Status Date / Time No Known Allergies Allergy Verified 06/02/18 09:28 ED Review of Systems ROS: Stated complaint: FLU SX Other details as noted in HPI Comment: All other systems reviewed and negative Constitutional: denies: chills, diaphoresis, fever, malaise, weakness Eyes: other (eye redness ). denies: eye pain, eye discharge, vision change ENT: congestion, other (rhinorrhea ). denies: throat pain Respiratory: denies: cough, shortness of breath, SOB with exertion, SOB at rest, stridor, wheezing Cardiovascular: denies: chest pain, palpitations, dyspnea on exertion, edema, syncope, paroxysmal nocturnal dyspnea Gastrointestinal: denies: abdominal pain, nausea, vomiting, diarrhea, constip ation, hematemesis, hematochezia Genitourinary: denies: urgency, dysuria, frequency, hematuria, discharge, testicular pain, testicular mass Musculoskeletal: denies: back pain, joint swelling, arthralgia, myalgia Skin: denies: rash, lesions, change in color, change in hair/nails, pruritus Neurological: denies: headache, weakness, numbness, paresthesias, confusion, abnormal gait, vertigo Psychiatric: denies: anxiety, depression, auditory hallucinations, visual hallucinations, homicidal thoughts, suicidal thoughts Hematological/Lymphatic: denies: easy bleeding, swollen glands ED Past Medical Hx - Past Medical History Previous Medical History?: Yes Hx Hypertension: Yes Hx Diabetes: Yes Hx GERD: Yes Hx Psychiatric Treatment: Yes (DEPRESSION/ MOOD SWINGS, BIPOLAR) Hx Asthma: Yes Additional medical history: Cocaine addiction, High lipids. - Surgical History Past Surgical History?: Yes Additional Surgical History: Right forearm surgery with hardware. - Social History Smoking Status: Current Every Day Smoker Substance Use Type: Alcohol, Cocaine, Marijuana, Other - Medications Home Medications: Home Medications Medication Instructions Recorded Confirmed Last Taken Type Sertraline [Zoloft] 100 mg PO QDAY 06/25/14 06/25/14 Unknown History traZODone [Desyrel] 50 mg PO QHS 06/25/14 06/25/14 Unknown History Benzonatate [Tessalon Perles] 100 mg PO Q8HR #30 cap 05/04/21 Unknown Rx Cetirizine HCl [Zyrtec 10mg tab] 10 mg PO DAILY #30 tab 05/04/21 Unknown Rx Gentamicin 0.3% Ophth Soln 1 drops OP Q4H 7 Days #1 bottle 05/04/21 Unknown Rx ED Physical Exam - General Limitations: No Limitations General appearance: alert, in no apparent distress - Head Head exam: Present: atraumatic, normocephalic, normal inspection - Eye Eye exam: Present: normal appearance, PERRL, EOMI, conjunctival injection (mildly injected bilaterally), other (There is no photophobia, no crusting or drainage noted). Absent: scleral icterus, nystagmus, periorbital swelling, periorbital tenderness Pupils: Present: normal accommodation - ENT ENT exam: Present: normal exam, mucous membranes moist, TM's normal bilaterally - Neck Neck exam: Present: normal inspection, full ROM. Absent: meningismus - Respiratory Respiratory exam: Present: normal lung sounds bilaterally. Absent: respiratory distress, wheezes, rales, rhonchi, stridor - Cardiovascular Cardiovascular Exam: Present: regular rate, normal rhythm, normal heart sounds - GI/Abdominal GI/Abdominal exam: Present: soft. Absent: distended, tenderness, guarding, rebound - Back Exam Back exam: Present: normal inspection, full ROM - Neurological Exam Neurological exam: Present: alert, oriented X3, CN II-XII intact, normal gait - Psychiatric Psychiatric exam: Present: normal affect, normal mood - Skin Skin exam: Present: intact ED Course Vital Signs 05/04/21 11:52 Temperature 98.6 F Pulse Rate 74 Respiratory 16 Rate Blood Pressure 144/82 [Left] O2 Sat by Pulse 99 Oximetry ED Medical Decision Making - Radiology Data Radiology results: report reviewed interpreted by me: Patient: JEY SNYDER MR#: [id number] : 1985 Acct:[id number] Age/Sex: 35 / M ADM Date: 05/04/21 Loc: ED Attending Dr: Ordering Physician: BRENDA OAKLEY Date of Service: 05/04/21 Procedure(s): XR chest routine 2V Accession Number(s): [id number] cc: BRENDA OAKLEY Fluoro Time In Minutes: CHEST 2 VIEWS INDICATION: cough. COMPARISON: 01/24/2019 FINDINGS: Support devices: None. Heart: Within normal limits. Lungs/pleura: No acute air space or interstitial disease. No pneumothorax. Additional findings: None. IMPRESSION: No acute findings. Signer Name: Nicolás Burger Jr, MD Signed: 05/04/2021 1:25 PM Workstation Name: [id number] Transcribed By: TTR Dictated By: NICOLÁS BURGER JR, MD Electronically Authenticated By: NICOLÁS BURGER JR, MD Signed Date/Time: 05/04/211324 DD/ 24 TD/TT: - Medical Decision Making Patient cxr negative for acute. Patient well appearing, not toxic and not in any acute distress. He appears hydrated. His vs are stable. I suspect pt symptoms likely related to viral illness including COVID Discussed x-ray results with patient. Discussed suspected diagnosis and recommend that he had outpatient COVID-19 test once he leaves the ER today. In the meantime his symptoms will be geared towards his symptoms. Patient expressed understanding and agree with plan. Patient was stable at time of discharge. Critical care attestation.: If time is entered above; I have spent that time in minutes in the direct care of this critically ill patient, excluding procedure time. ED Disposition Clinical Impression: Viral illness, Conjunctivitis Disposition: HOME / SELF CARE / HOMELESS Is pt being admited?: No Does the pt Need Aspirin: No Condition: Stable Instructions: Viral Respiratory Infection, Eewt-Py-Knii, Viral Conjunctivitis, Adult, Viral Illness, Adult Additional Instructions: Your symptoms are likely related to nonspecific viral illness including COVID- 19. I recommend that you get a COVID-19 test when you leave here today as this could be the cause of your symptoms. You should quarantine until you know the results of your test. Take the Zyrtec and the Tessalon Perles to help with your URI symptoms or cough. You can take Tylenol and ibuprofen from over -the-counter to help with any pain. USe the eye drops as prescribed. Increase your fluid intake, take a multivitamin containing vitamin C, zinc and vitamin D. Prescriptions: Gentamicin 0.3% Ophth Soln 1 drops OP Q4H 7 Days #1 bottle Benzonatate [Tessalon Perles] 100 mg PO Q8HR #30 cap Cetirizine HCl [Zyrtec 10mg tab] 10 mg PO DAILY #30 tab Referrals: PRIMARY CARE, [Primary Care Provider] - 3-5 Days Forms: Work/School Release Form(ED) Time of Disposition: 13:43
--- NOTE | 2021-05-04 13:29 | XRay Report ---
CHEST 2 VIEWS INDICATION: cough. COMPARISON: 01/24/2019 FINDINGS: Support devices: None. Heart: Within normal limits. Lungs/pleura: No acute air space or interstitial disease. No pneumothorax. Additional findings: None. IMPRESSION: No acute findings. Signer Name: Nicolás Stevens Jr, MD Signed: 05/04/2021 1:25 PM Workstation Name: [id number]
== END 2021-05-04 14:14 | disposition home or self-care (01) ==
LOC: ED 11:33
DX: B34.9 Viral infection, unspecified (principal); H10.9 Unspecified conjunctivitis; I10 Essential (primary) hypertension; E11.9 Type 2 diabetes mellitus without complications; K21.9 Gastro-esophageal reflux disease without esophagitis; J45.909 Unspecified asthma, uncomplicated; F32.9 Major depressive disorder, single episode, unspecified; F17.200 Nicotine dependence, unspecified, uncomplicated; F12.90 Cannabis use, unspecified, uncomplicated; F14.90 Cocaine use, unspecified, uncomplicated; Z79.899 Other long term (current) drug therapy
CPT/HCPCS: 71046; 99283

== ENCOUNTER 2021-05-13 20:53 | Emergency (ER) | payer MEDICARE ==
[2021-05-14 03:04] VITALS: BP 145/99
== END 2021-05-14 08:20 | disposition left against medical advice (07) ==
LOC: ED 20:53
DX: Z00.00 Encounter for general adult medical examination without abnormal findings (principal); Z53.21 Procedure and treatment not carried out due to patient leaving prior to being seen by health care provider